=== PATIENT | female | born 1960 | race Caucasian/White ===

== ENCOUNTER 2025-03-03 13:22 | Emergency (ER) | payer OTHER, MEDICAID ==
[~2025-03-03] VITALS: Ht 162.6 cm; Wt 66.2 kg
[2025-03-03 13:26] VITALS: TEMP 98.2
[2025-03-03] MEDS: IV NS 0.9% 1,000 ML BAG IV ONE ×2 (14:10→16:45)
[2025-03-03 14:14] LABS: PLATELET COUNT (AUTO) 501 K/uL (150-450); RED BLOOD CELL COUNT(AUTO) 3.97 MIL/uL (4.0-5.2); RED CELL DISTRIBUTION WIDTH 16.1 % (11.5-15.0); WHITE BLOOD COUNT (AUTO) 20.1 K/uL (4.3-11.0)
[2025-03-03 14:30] LABS: LACTIC ACID 1.5 mmol/L (0.4-2.0)
[2025-03-03] MEDS ORDERED: ONDANSETRON HCL/PF 4 MG/2 ML VIAL ONE (14:35)
[2025-03-03 14:36] LABS: ASPARTATE AMINOTRANSFERASE 11 U/L (15-37); CREATININE 0.8 mg/dL (0.6-1.3); SODIUM SERUM 140 mmol/L (136-145); TOTAL PROTEIN, SERUM 6.9 g/dL (6.4-8.2); UREA NITROGEN, BLOOD 24 mg/dL (7-18)
[2025-03-03] MEDS ORDERED: HYDROMORPHONE 1 MG/1 ML DISP.SYRIN ONE ×3 (14:36→19:52)
[2025-03-03] MEDS: HYDROMORPHONE INJ 2 MG/ML DISP.SYRIN IV ONE (14:40)
[2025-03-03] MEDS: ONDANSETRON HCL/PF 4 MG/2 ML VIAL IVP ONE (14:40)
[2025-03-03 14:42] LABS: CALCIUM, SERUM 8.9 mg/dL (8.5-10.1)
[2025-03-03] MEDS: HYDROMORPHONE 1 MG/1 ML DISP.SYRIN IV ONE ×2 (15:55→19:55)
[2025-03-03] MEDS ORDERED: IV NS 0.9% 250 ML IV ONE (15:59)
[2025-03-03] MEDS ORDERED: IOHEXOL-300 100 ML VIAL IV ONE (15:59)
[2025-03-03 16:00] LABS: APPEARANCE,URINE CLEAR (CLEAR); BLOOD, URINE NEGATIVE Ery/uL (NEGATIVE); LEUKOCYTE ESTERASE ,URINE NEGATIVE (NEGATIVE); NITRITE, URINE NEGATIVE (NEGATIVE); UGLUCOSE NEGATIVE (NEGATIVE)
[2025-03-03] MEDS: CEFEPIME 1 GM in IV D5W 50 ML IV ONE (16:00)
[2025-03-03] MEDS ORDERED: METH-647 PO (16:01)
[2025-03-03] MEDS ORDERED: ALEN70TA80 PO (16:01)
[2025-03-03] MEDS ORDERED: DICL100G26 TP (16:01)
[2025-03-03] MEDS ORDERED: DEXA4TAB PO (16:01)
[2025-03-03] MEDS ORDERED: CALC-1239 PO (16:01)
[2025-03-03] MEDS ORDERED: APIX5TAB PO (16:01)
[2025-03-03] MEDS ORDERED: SENN1TAB33 PO (16:01)
[2025-03-03] MEDS ORDERED: GABA600T12 PO (16:01)
[2025-03-03] MEDS ORDERED: NALO4SPR NS (16:01)
[2025-03-03] MEDS ORDERED: EZET10TA15 PO (16:01)
[2025-03-03] MEDS ORDERED: OXYB10TA30 PO (16:01)
[2025-03-03] MEDS ORDERED: FAMO-131 PO (16:01)
[2025-03-03] MEDS ORDERED: METH5TAB2 PO (16:01)
[2025-03-03] MEDS ORDERED: HYDR2TAB4 PO (16:01)
[2025-03-03] MEDS: VANCOMYCIN 1 GM in IV D5W 250 ML IV ONE (17:35)
[2025-03-03 19:00] VITALS: BP 123/61; O2SAT 99
== END 2025-03-03 20:10 ==
LOC: ER 13:29
DX: M54.50 Low back pain, unspecified (principal); D72.829 Elevated white blood cell count, unspecified; I10 Essential (primary) hypertension; Z79.01 Long term (current) use of anticoagulants; Z79.52 Long term (current) use of systemic steroids; Z88.2 Allergy status to sulfonamides; Z88.5 Allergy status to narcotic agent; Z90.89 Acquired absence of other organs; Z79.899 Other long term (current) drug therapy
CPT/HCPCS: 99285; 72132; 96365; 96361; 96375; 71045; 96367; 96366; 72129; 85025; 80048; 87077; 87040 ×2; 87086; 83605; 80076; 87186; 81003; 36415; 84484; 96376; J3373; J2405; J7060; J7030; J7050; J0692; Q9967; J1171 ×3